=== PATIENT | female | born 1985 | race Caucasian/White ===

== ENCOUNTER 2025-09-21 17:11 | Day surgery (SDC) | payer OTHER, SELFPAY ==
[2025-09-21] VITALS (9 sets, daily range): BP systolic 118–140; BP diastolic 76–102; BMI 34.0
--- NOTE | 2025-09-21 08:01 | ED.GENMED ---
History of Present Illness
General
Chief Complaint: Abdominal Pain
Time Seen by Provider: 09/21/25 08:01
History of Present Illness
History of Present Illness:
FOCUSED PAST MEDICAL HISTORY
- Anxiety/depression, hypothyroidism
REVIEW OF OLD RECORDS
-
Note:
CHIEF COMPLAINT(S)
Severe abdominal pain.
HISTORY OF PRESENT ILLNESS
The patient is a 40-year-old female who presented with intense abdominal pain that started at approximately 3:45 a.m. She initially perceived it as gas-related discomfort and attempted self-massage and [id number]-[id number] maneuvers without relief. She
reports that the pain is located primarily in the upper abdomen. Currently, the pain has somewhat subsided but remains persistent to the extent that she cannot focus on anything else. The patient denies experiencing nausea presently, though she
reported an episode of vomiting. She also had diarrhea the previous day but denied any presence of blood in the stool. There has been no fever documented. The patient has not consumed any food this morning and does not have an appetite. The patient
reports a pressure-like sensation when her right upper abdomen is palpated, and she experiences increased pain upon taking a deep breath.
PAST MEDICAL AND SURGICAL HISTORY
The patient has not had any previous abdominal surgeries other than sections. She still has her gallbladder and appendix.
ADDITIONAL HISTORY OBTAINED FROM SOURCES OTHER THAN THE PATIENT
Per the patients spouse, the patient woke up and experienced severe abdominal pain around 3:30 a.m.
EXTERNAL RECORDS REVIEWED
No external records reviewed were mentioned.
REVIEW OF SYSTEMS
- Gastrointestinal: Severe abdominal pain, vomiting today, diarrhea yesterday. No blood in stools. No current nausea
- Systemic: No fever.
PHYSICAL EXAM
General: Alert, no acute distress.
Skin: Warm, dry.
Head: Normocephalic, atraumatic.
Neck: Supple, trachea midline.
Eye Ears, nose, mouth, and throat: Oral mucosa moist.
Cardiovascular: Normal peripheral perfusion, No edema.
Respiratory: Respirations are non-labored, but deep breaths exacerbate abdominal pain.
Gastrointestinal: Minimal upper abdominal tenderness worse on the right, positive Gerardo sign, elevated BMI, no lower tenderness, no peritoneal signs
Back: Normal range of motion, Normal alignment.
Musculoskeletal: Normal range of motion, normal strength.
Neurological: Alert and oriented to person, place, time, and situation, No focal neurological deficit observed.
Psychiatric: Cooperative, appropriate mood & affect.
PLAN
1. Perform an abdominal ultrasound to evaluate for gallstones or gallbladder infection.
2. Initiate blood work for further diagnostic assessment.
3. Administer Pepcid (Famotidine) to address acidity.
4. Provide IV fluids for hydration.
5. Consider administering Toradol (Ketorolac) for pain relief, as it is not a narcotic and has few significant side effects.
DIFFERENTIAL DIAGNOSIS
The Differential Diagnosis includes, in no particular order and is not limited to:
1. Biliary Colic
2. Cholelithiasis
3. Cholecystitis
4. Gastroenteritis
5. Peptic Ulcer Disease
6. Pancreatitis
7. Hepatitis
8. Gastritis
9. Gastroesophageal Reflux Disease (GERD)
10. Irritable Bowel Syndrome (IBS)
RADIOLOGY
- Ultrasound imaging obtained which shows gallstones with questionable cholecystitis
EKG
- Sinus 70, nonspecific ST abnormality, no old to compare
LABS
- White count 13, normal transaminases and lipase
UPDATE
-SUMMARY OF ENCOUNTER
The patient is a 40-year-old female who presented to the emergency department with severe abdominal pain. Initial evaluation included symptoms suggesting possible gallbladder involvement with suspicion of gallstones or infection. An abdominal
ultrasound confirmed the presence of gallstones but did not show clear-cut signs of infection. Laboratory tests revealed an elevated white blood cell count, which was determined to be inconclusive for infection. The patients abdominal pain subsided
significantly with treatment, leading to a discussion on whether outpatient follow-up was appropriate compared to hospital admission.
DISPOSITION
Consideration was given to admitting the patient for further management due to presenting complaints. However, given her symptom improvement and tolerability post-treatment, outpatient management with follow-up with a surgeon was deemed appropriate.
ASSESSMENT
The patient likely has a gallbladder issue, specifically gallstones, that may require surgical intervention in the future.
EMERGENCY TREATMENTS ADMINISTERED
The patient was administered ketorolac (Toradol), which provided significant relief of her symptoms.
MANAGEMENT OF THE PATIENTS CARE WAS DISCUSSED WITH
A consultation with a surgeon was discussed to evaluate the necessity of hospital admission versus outpatient follow-up for potential surgical intervention.
PLAN
The patient is recommended to follow up with a surgeon as an outpatient for further evaluation and management of gallstones.
INDEPENDENT REVIEW OF LABS AND INTERPRETATION OF TESTS
My independent interpretation of the abdominal ultrasound shows the presence of gallstones without clear signs of infection.
PATIENT EDUCATION AND COUNSELING
Discussed with the patient the potential need for surgical intervention due to gallstones and the importance of following up with a surgeon. Informed her of the potential for pain recurrence and signs that would necessitate immediate medical
attention.
FOLLOW-UP INSTRUCTIONS
The patient is advised to follow up with a surgeon for further evaluation and potential treatment of gallstones.
MEDICATION RECONCILIATION
The patient received ketorolac (Toradol) in the emergency department, and no new prescriptions were provided upon discharge.
MEDICAL DECISION MAKING
- Number and Complexity of Problems Addressed: Chronic conditions affecting care include gallstones. Differential Diagnosis list: Biliary Colic, Cholelithiasis, Cholecystitis, Gastroenteritis, Peptic Ulcer Disease, Pancreatitis, Hepatitis,
Gastritis, Gastroesophageal Reflux Disease (GERD), Irritable Bowel Syndrome (IBS).
- Data:
- Category 1: Laboratory tests reviewed include the elevated white blood cell count noted in the CBC. My independent interpretation of the abdominal ultrasound confirms gallstones without infection.
- Category 2: Clinical information obtained from the patients spouse confirming initial symptom onset timing.
- Category 3: Discussion of management with a surgeon to determine the necessity of admission versus outpatient follow-up.
- Risk: Consideration of Admission/Observation: Escalation of care including admission/observation was considered given the complexity and risk of the patients presenting complaint, exam findings, and/or their underlying comorbidities. However,
ultimately, I feel the patient is safe for outpatient management with close follow-up. Reasoning: Work-up reassuring, does not reveal any acute life/organ-threatening processes, patients symptoms well controlled upon reevaluation, reexamination is
reassuring, vitals are stable, patient agreeable with discharge, reliable for follow-up.
DIAGNOSIS
Calculous cholecystitis
I discussed case with Dr. Johnson who evaluated the patient in the ED and wants to take the patient to the OR at this time. Zosyn has been ordered.
Phy Exam
Physical Exam
Physical Exam:
See HPI
Course
Orders/Labs/Results
Orders:
Orders
09/21/25 08:01
Electrocardiogram (*1) Urgent
Reason for Study: Abdominal Pain
EKG- Treatment ONCE
09/21/25 08:02
Test Result ONCE
09/21/25 08:08
0.9% Sodium Chloride 1000 ml [Nss] 1,000 ml IV BOLUS
Famotidine [Pepcid] 20 mg IV NOW STA
Ketorolac [Toradol] 15 mg IV NOW STA
09/21/25 08:42
Complete Blood Count/With Diff Urgent
Comprehensive Metabolic Panel Urgent
HCG, Serum Qualitative Screen Urgent
Lipase Urgent
09/21/25 10:48
US Abdomen Complete/Upper Urgent
Comment:
Reason For Exam: upper pain
09/21/25 12:48
Piperacillin/Tazo 3.375 Gram [Zosyn] 3.375 gram in 50 ml IV NOW
Abnormal Lab Results
09/21/25
08:42
WBC 13.1 H 10^3/uL
(4.8-10.8)
MCH 31.5 H pg
(27.0-31.0)
Absolute Neuts (auto) 11.6 H 10^3/uL
(1.4-6.5)
Absolute Lymphs (auto) 1.0 L 10^3/uL
(1.2-3.4)
Neutrophils % 88.9 H %
(42.2-75.2)
Lymphocytes % 7.4 L %
(20.5-51.1)
Glucose 136 H mg/dl
(70-99)
09/21/25 08:42
09/21/25 08:42
Vital Signs
Initial and Last Documented VS:
Initial Vital Signs
Temp Pulse Resp BP Pulse Ox
36.5 C 76 16 118/86 99
09/21/25 07:56 09/21/25 07:56 09/21/25 07:56 09/21/25 07:56 09/21/25 07:56
Last Documented Vital Signs
Temp Pulse Resp BP Pulse Ox
36.5 C 76 16 118/86 99
09/21/25 07:56 09/21/25 07:56 09/21/25 07:56 09/21/25 07:56 09/21/25 08:01
*Pulse Oximetry
SaO2: 99
Oxygen Mode of Delivery: Room air
Patient hypoxic: no
*Critical Care Note
Total Time (30-74mins, 75-104mins- exclusive of procedures): Not Applicable
ED Attending Note
-
Portions of this chart may have been created with voice recognition software.� Occasional wrong word or��sound alike� substitutions may have occurred due to the inherent limitations of voice recognition software.
Discharge Plan
Departure
Patient Disposition: Admit
Date of Disposition: 09/21/25
Time of Disposition: 12:48
Presentation/result/management discussed w/ accepting /DO: dr johnson
Discharge Problem:
Cholecystitis
Referrals:
Jac High PA [Family Provider, General]
Interventions
Interventions:
*Risk Screen - Suicide Last Done: 09/21/25 07:56
*General Assessment Last Done: 09/21/25 07:56
*Neglect/Abuse Screening Last Done: 09/21/25 07:56
*ED- Fall Risk Assessment Last Done: 09/21/25 07:56
*ED COVID-19 Vaccine History Last Done: 09/21/25 07:56
LG-Sfcoft-Ubvorvhjnm Assessment Last Done: 09/21/25 11:09
Discharge Date and Time
Print Language: LITHUANIAN
[2025-09-21] MEDS: NSS 1000 IV (08:31)
[2025-09-21] MEDS: TORADOL 15 MG IV (08:32)
[2025-09-21] MEDS: PEPCID 20 MG IV (08:35)
[2025-09-21 09:00] LABS: Hematocrit 42.1 % (37.0-47.0); Hemoglobin 14.2 g/dL (12.0-16.0); Mean Corp Hgb Conc. 33.7 g/dL (33.0-37.0); Mean Corpuscular Volume 93.3 fL (81.0-99.0); Nucleated Red Blood Cells % 0 %; Platelet Count 330 10^3/uL (130-400); Red Cell Dist. Width 12.4 % (11.5-14.5)
[2025-09-21 09:18] LABS: ALT (SGPT) 19 U/L (0-35); AST (SGOT) 20 U/L (14-36); Albumin 4.8 g/dl (3.5-5.0); Alkaline Phosphatase 75 U/L (38-126); Blood Urea Nitrogen 12 mg/dl (7-17); Calcium 9.8 mg/dl (8.4-10.2); Carbon Dioxide 26 mmol/L (22-30); Chloride 100 mmol/L (98-107); Glucose 136 mg/dl (70-99); Lipase 61 U/L (23-300); Potassium 3.8 mmol/L (3.5-5.1); Sodium 135 mmol/L (135-145); Total Protein 8.0 g/dl (6.3-8.2); eGFR > 60.00
[2025-09-21 09:25] LABS: HCG, Serum Qualitative Screen Negative
--- NOTE | 2025-09-21 13:01 | HPS.HSE ---
Family Physician
-
Family Physician: FELICIA Erazo
Chief Complaint
-
Postprandial right upper quadrant pain
History of Present Illness
This is a 40-year-old female who presents after her first episode of postprandial right upper quadrant pain that began early this morning after eating pork last night. This was her first such episode and lasted several hours though has dissipated
since presenting to the ED and receiving pain medication. An ultrasound demonstrated stigmata of chronic cholecystitis but no overt findings of acute cholecystitis. LFTs and blood work all normal. The patient denies Fever, Chest Pain, Shortness
Of Breath, Nausea, Vomiting, changes in urinary and bowel habits, unintentional weight loss, jaundice, icterus, acolic stools.
Medical History
Past Medical History
Past Medical History: Reports None
Past Surgical History: Reports
Social History
Tobacco: Non-smoker
Personal:
Living: With Family
Employment: Employed
Family History
Family History: Not pertinent
Allergies / Home Medications
Allergies reflects when Allergies were last updated in [employer].
Home Medications with original date entered in [employer]
Allergy/Medication List:
No known allergies.
Metformin 500 mg p.o. twice daily.
Review of Systems
-
A 12 point ROS was completed and negative except as noted: Yes
Physical Exam
Vital Signs
Vital Signs
Temp Pulse Resp BP Pulse Ox
97.7 F 76 16 118/86 99
09/21/25 07:56 09/21/25 07:56 09/21/25 07:56 09/21/25 07:56 09/21/25 08:01
Physical Exam
General: Well Developed
HEENT: NormoCephalic
Respiratory: Non Labored Respirations
GI: Soft, Non Distended and Tender (Mildly)
Laboratory Results
-
11/10/25 08:42
09/21/25 08:42
Laboratory Results
Total Bilirubin 0.5 mg/dl (0.2-1.3) 09/21/25 08:42
AST 20 U/L (14-36) 09/21/25 08:42
ALT 19 U/L (0-35) 09/21/25 08:42
Alkaline Phosphatase 75 U/L (38-126) 09/21/25 08:42
Lipase 61 U/L (23-300) 09/21/25 08:42
Data Reviewed
-
Ultrasound: Image Personally Visualized and interpreted, Report Reviewed by me, Discussed with Physician, Discussed with Patient and Discussed with Family
Lab Data: Labs Reviewed by me, Discussed with Patient and Discussed with Family
Impression/Plan
-
IMPRESSION: This is a 40-year-old female who presents with postprandial right upper quadrant pain concerning for biliary colic versus chronic cholecystitis.
PLAN:
Will plan for a laparoscopic cholecystectomy in the OR today.
We did discuss nonoperative management with watchful waiting but given the severity of the pain and ultrasound findings she is eager to get her gallbladder out sooner rather than later.
N.p.o., IV fluids, IV antibiotics.
Risks/Benefits/Alternatives, expected postoperative course and possible complications (bleeding, infection, injury to surrounding structures, acute/chronic pain) discussed at length. Patient wishes to proceed with surgery. All questions answered.
Consent obtained.
I spent 65 minutes in total for the care of this patient today including direct patient care and counseling, reviewing labs, imaging, coordination of care, as well as documentation.
[2025-09-21] MEDS: ZOSYN 50 IV (13:12)
--- NOTE | 2025-09-21 14:21 | W.SUR.PREOP ---
Pre-Operative Surgical Note
-
I have examined this patient prior to the performance of the scheduled procedure.
The patient's condition is unchanged from the time of the current History and
Physical and the patient is able to undergo the scheduled procedure.
--- NOTE | 2025-09-21 15:47 | W.IMMPOSTOP ---
Surgical Immed Post Op Note
-
Primary Surgeon: Dagoberot Johnson MD
Assisting Surgeon: None
Pre-op Diagnosis: Biliary colic
Post-op Diagnosis: Acute cholecystitis
Procedure Performed: Laparoscopic cholecystectomy with cholangiogram
Anesthesia Type: General
Specimen / Cultures: Gallbladder and contents
Estimated Blood Loss: 7 cc
Complications: None
Operative Findings: Early inflammation of the gallbladder noted. Stone noted in the translucent cystic duct which was milked back prior to ligation. The duct was ligated with a clip followed by 0 PDS Endoloop. Critical view of safety obtained
prior to a cholangiogram which demonstrated normal biliary anatomy and no distal filling defects.
Postop plan:
Will DC home today
--- NOTE | 2025-09-21 15:49 | OR.RPT ---
Operative Report
Operative Report
Patient Name: Sierra Stockton
: 1985
Date of Operation: 09/21/2025
Preoperative Diagnosis: Biliary colic
Postoperative Diagnosis: Acute cholecystitis
Procedure(s):
Laparoscopic Cholecystectomy with Cholangiogram
Surgeon(s):
Dr. Johnson
Structural Iron Erector(s):
SUNNY Escamilla
MAXIMILIANO Mesa
Anesthesia: General
Estimated Blood Loss: 7 cc
Urine Output: None
Drains/Lines/Implants: None
Specimens:
1. Gallbladder and contents
HPI/Surgical Indications:
This is a 40-year-old female who presented to our ED with 1 day of postprandial right upper quadrant pain. Exam, labs and imaging are consistent with biliary colic. Risks/Benefits/Alternatives were discussed at length, and the patient consented to
proceed with surgery.
Operative Findings: Early inflammation of the gallbladder noted. Stone noted in the translucent cystic duct which was milked back prior to ligation. The duct was ligated with a clip followed by 0 PDS Endoloop. Critical view of safety obtained
prior to a cholangiogram which demonstrated normal biliary anatomy and no distal filling defects.
Procedure Description:
The patient was brought to the Operating Room and placed in the supine position with one arm tucked. Following uneventful induction of general endotracheal anesthesia, an orogastric tube was placed. The abdomen was prepped and draped in the usual
sterile fashion. A timeout was performed confirming the procedure, consent, and that IV antibiotics were infused and sequential compression devices were confirmed to be on. The abdomen was entered using a left subcostal Veress technique which
required a single pass followed by a 5 mm right upper quadrant Optiview trocar. Pneumoperitoneum to 15 mmHg pressure was obtained without difficulty and we confirmed that no injury had occurred during our entry. The patient was positioned in
reverse Trendelenberg and rotated with the right side up slightly. Two 5 mm trocars were then placed along the right subcostal margin, followed by a 12 mm port in the epigastrium. A locking grasping forceps was placed on the fundus of the
gallbladder where it was then retracted cephalad and to the right. Using appropriate grasping instruments, the peritoneum overlying the triangle of Calot was incised and extended superiorly on both the anterior and posterior gallbladder mims. The
lower third of the gallbladder was dissected off the cystic plate. The cystic triangle was dissected until 2 and only 2 structures were seen entering the gallbladder, thus a critical view of safety was achieved. The cystic artery was clipped with 5
mm titanium clips and divided. The inferior portion of the gallbladder was fairly translucent and stones could be visually seen through the gallbladder wall. There was 1 yellow stone in the gallbladder neck which was milked back. The cystic duct
was clipped high on the gallbladder. A ductotomy was made and a cholangiocatheter on an Deleon clamp was inserted into the cystic duct. A C-arm was draped and brought into the field. An intra-operative cholangiogram was performed and was noted to
have:
No filling defects in the biliary tree
No significant biliary dilation
Brisk flow of contrast into the duodenum
Normal biliary anatomy
The catheter was then removed and the cystic duct was controlled with a clip followed by 0 PDS Endoloop. After ensuring both the artery and duct were divided, the gallbladder was freed from the liver using electrocautery. There was some spillage
of bile from our ductotomy, but no spillage of stones. The gallbladder bed was inspected and excellent hemostasis was obtained. The gallbladder was extracted through the 12 mm trocar site using an endocatch bag without dilating the port site. The
abdomen was again irrigated and excellent hemostasis was assured. All remaining trocars were then removed and the pneumoperitoneum was evacuated. The 12 mm trocar site was closed using 0 PDS suture. All trocar sites were closed at the skin level
using 4-0 Monocryl followed by Dermabond. Overall, the patient tolerated the procedure well and was taken to the Recovery Room postoperatively in stable condition.
I was the attending physician and performed the procedure with assistance of the CHIEF COMMERCIAL OFFICER and PA student above. They were required due to the complexity of the procedure. During the procedure they assisted with port placement, gallbladder retraction,
holding camera and skin closure. I was present for all portions of the case, excluding skin closure.
Dagoberto Johnson MD
== END 2025-09-21 17:58 | disposition home or self-care (01) ==
LOC: SDS 17:11
PROVIDERS: ATTENDING PHYSICIAN Surgery; EMERGENCY PHYSICIAN Emergency Medicine; FAMILY PHYSICIAN Physician Assistant Medical
DX: K80.10 Calculus of gallbladder with chronic cholecystitis without obstruction (principal); K80.42 Calculus of bile duct with acute cholecystitis without obstruction
CPT/HCPCS: 47563; 74300; 76000; 76700; 80053; 83690; 84703; 85025; 88304; 93005; 96361; 96374; 96375; 99285; A4300